=== PATIENT | male | born 1960 | race Caucasian/White ===

== ENCOUNTER → 2022-06-25 09:40 | Outpatient (BNVA) | payer OTHER, SELFPAY | PROVIDERS: Family Provider Nurse Practitioner Family; PCP Family Medicine; Visit Provider Nurse Practitioner Family | DX: Z13.1 Encounter for screening for diabetes mellitus (principal); Z12.5 Encounter for screening for malignant neoplasm of prostate; E78.5 Hyperlipidemia, unspecified | CPT/HCPCS: 80053; 80061; G0103 ==

== ENCOUNTER → 2023-03-17 08:34 | Outpatient (BNVA) | payer OTHER, SELFPAY | PROVIDERS: Family Provider Nurse Practitioner Family; PCP Nurse Practitioner Family; Visit Provider Nurse Practitioner Family | DX: R53.83 Other fatigue (principal); R03.0 Elevated blood-pressure reading, without diagnosis of hypertension; E78.5 Hyperlipidemia, unspecified | CPT/HCPCS: 80053; 80061; 85025 ==

== ENCOUNTER 2023-07-03 22:14 | Emergency (ER) | payer OTHER, SELFPAY ==
--- NOTE | 2023-07-03 22:20 | CTR_ITS ---
PROCEDURE INFORMATION: Exam: CT Head Without Contrast Exam date and time: 07/03/2023 11:16 PM Age: 63 years old Clinical indication: Syncope and collapse; Patient HX: Syncopal episode TECHNIQUE: Imaging protocol: Computed tomography of the head without contrast. Radiation optimization: All CT scans at this facility use at least one of these dose optimization techniques: automated exposure control; mA and/or kV adjustment per patient size (includes targeted exams where dose is matched to clinical indication); or iterative reconstruction. REPORTING DATA: Count of CT and Cardiac NM exams in prior 12 months: This patient has received 0 known CTs and 0 known cardiac nuclear medicine studies in the 12 months prior to the current study. COMPARISON: No relevant prior studies available. RADIATION DOSE METRICS: Total DLP (mGy-cm): 1054.49 FINDINGS: Brain: There is mild diffuse cerebral atrophy. Patchy areas hypoattenuation are seen in the deep white matter of the cerebral hemispheres bilaterally compatible deep white matter microvascular disease. Cerebral ventricles: No ventriculomegaly. Paranasal sinuses: Visualized sinuses are unremarkable. No fluid levels. Mastoid air cells: Visualized mastoid air cells are well aerated. Bones/joints: Unremarkable. No acute fracture. Soft tissues: Unremarkable. CT/CT head wo con* [id number] IMPRESSION: There are no acute intracranial findings.
--- NOTE | 2023-07-03 22:20 | XRR_ITS ---
PROCEDURE INFORMATION: Exam: XR Chest Exam date and time: 07/03/2023 11:13 PM Age: 63 years old Clinical indication: Other: Syncope; Patient HX: Syncopal episode TECHNIQUE: Imaging protocol: Radiologic exam of the chest. Views: 1 view. COMPARISON: No relevant prior studies available. FINDINGS: Tubes, catheters and devices: Transcutaneous pacemaker lead overlies the right mid hemithorax. Lungs: Unremarkable. No consolidation. Pleural spaces: Unremarkable. No pleural effusion. No pneumothorax. Heart/Mediastinum: Unremarkable. No cardiomegaly. Bones/joints: Unremarkable. XR/XR chest 1V portable [id number] IMPRESSION: There are no acute chest findings.
--- NOTE | 2023-07-03 22:26 | ECG_ITS ---
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 Measurements Intervals [place] Rate: 88 P: 62 [place]: 183 QRS: 63 QRSD: 87 T: 15 QT: 376 QTc: 456 Interpretive Statements SINUS RHYTHM WITH FREQUENT VENTRICULAR PREMATURE COMPLEXES NONSPECIFIC T-WAVE ABNORMALITY ABNORMAL RHYTHM ECG No previous ECG available for comparison Electronically Signed On 07-04-2023 13:43:28 POWERHOUSE ELECTRICIAN APPRENTICE by Roberto Wheeler M.D. [email or web address] regional medical centerIntellisensecincinnati children's hospital medical centerThe Echo System/store/OM/[id number]
[2023-07-03 22:32] VITALS: BP 124/70; PULSE 44; RESP 16; TEMP 36.8; O2SAT 96; BMI 23.0
--- NOTE | 2023-07-03 22:36 | ED_ITS ---
HPI - Syncope General: Chief Complaint: Syncope Stated Complaint: HYPOTENISON Time Seen by Provider: 07/03/23 22:15 Source: patient and EMS Mode of arrival: EMS Limitations: no limitations History of Present Illness: 63-year-old male states that he had been laying on his couch this evening got up got diaphoretic felt lightheaded and passed out. Denies any chest pain or headache before the event he states he has a mild headache after hemostasis prescribed his blood pressure was in the 60s and his blood pressure improved he states he feels much improved currently denies any fever or vomiting has had some slight diarrhea. No history of syncopal events in the past. Associated symptoms: Reports headache(s); Deny abdominal pain, chest pain, fever(s) or nausea Review of Systems Const: Denies: fever(s) or chills ENMT: Denies: throat pain or dental pain Card: Reports: syncope; Denies: chest pain Resp: Denies: dyspnea GI: Denies: abdominal pain, nausea, vomiting or diarrhea Musc: Denies: neck pain or back pain Skin/Breast: Denies: rash Neuro: Reports: headache(s) PFSH ED PFSH: Medical History Elevated liver enzymes Hyperlipidemia Family History Other CAD (coronary artery disease) Chronic kidney disease (CKD) Dementia Hyperlipidemia Hypertension Denies family history of Diabetes Lung disease Cancer Stroke Social History Smoking and tobacco/nicotine status: never used tobacco/nicotine Lives independently: Yes Household members: spouse Housing: House Physical Exam Const: COMMON NORMALS: no acute distress, patient oriented x3 and healthy appearing HENMT: COMMON NORMALS: normocephalic and atraumatic HEAD & SCALP: normocephalic and atraumatic Eye: COMMON NORMALS: Equal, round and reactive pupils present and EOMs intact bilaterally PUPIL: Yes Equal, round and reactive pupils present Neck/C-Spine: COMMON NORMALS: full ROM and supple Chest: COMMONS NORMALS: normal inspection of the chest and normal palpation of entire chest wall Resp: COMMON NORMALS: normal respiratory effort, No retractions, No use of accessory muscles and clear to auscultation bilaterally AUSCULTATION: clear to auscultation bilaterally Cardio: COMMON NORMALS: regular rate, regular rhythm and No murmurs present (Cardio) RATE: regular rate RHYTHM: regular rhythm GI: COMMON NORMALS: Normal to inspection, nondistended, normoactive bowel horacio nds present, Soft to palpation, non-tender and no masses PALPATION: Yes Soft to palpation Extremity: COMMON NORMALS: normal to inspection and full ROM Neuro: COMMON NORMALS: patient oriented x3, moves all extremities and no focal motor deficits Psych: COMMON NORMALS: mental status grossly normal, Normal thought process present and cooperative THOUGHT PROCESS: Normal thought process present Skin: COMMON NORMALS: no rashes or lesions noted and no wounds GENERAL SKIN EXAM: no rashes or lesions noted Course Vital Signs: Vital signs: Vital Signs Temperature 98.2 F 07/03/23 22:32 Pulse Rate 68 07/04/23 01:20 Respiratory Rate 16 07/03/23 22:32 Blood Pressure 116/74 07/04/23 01:20 Pulse Oximetry 96 07/03/23 22:32 MDM - Syncope Medical Decision Making Patient presents here with syncopal event labs. He has some dehydration he states he has not drank any water today just coffee. His head CT cardiac work- up here is normal he feels much improved after IV fluids his orthostatics are normal currently he is stable for discharge she is to follow-up with PCP and return if worsening he understands agrees to plan he is to drink plenty of fluids Medical Records I reviewed the patient's medical records. Lab Data I reviewed the patient's lab results. 07/03/23 22:40 07/03/23 22:40 Radiology Impressions Chest X-Ray 07/03/23 22:20 IMPRESSION: There are no acute chest findings. Head CT 07/03/23 22:20 IMPRESSION: There are no acute intracranial findings. Laboratory Results WBC 9.05 10^3/uL (3.29-11.43) 07/03/23 22:40 RBC 4.79 10^6/uL (3.85-5.65) 07/03/23 22:40 Hgb 14.60 g/dL (11.27-16.99) 07/03/23 22:40 Hct 44.7 % (37-53) 07/03/23 22:40 MCV 93.3 fl (82-101) 07/03/23 22:40 MCH 30.5 pg (27-33) 07/03/23 22:40 MCHC 32.7 g/dL (30-55) 07/03/23 22:40 RDW 13.1 % (12.1-15.1) 07/03/23 22:40 Plt Count 257 10^3/cmm (157-399) 07/03/23 22:40 MPV 12.2 fL (7.4-10.4) H 07/03/23 22:40 Neut % (Auto) 43.9 % 07/03/23 22:40 Lymph % (Auto) 44.2 % 07/03/23 22:40 Carlton % (Auto) 9.7 % 07/03/23 22:40 Eos % (Auto) 1.5 % 07/03/23 22:40 Baso % (Auto) 0.4 % 07/03/23 22:40 Neut # (Auto) 3.96 10^3/uL (1.8-7.7) 07/03/23 22:40 Lymph # (Auto) 4.0 10^3/uL (0.8-4.8) 07/03/23 22:40 Carl[place] # (Auto) 0.9 10^3/uL (0.2-0.9) 07/03/23 22:40 Eos # (Auto) 0.1 10^3/uL (0.0-0.8) 07/03/23 22:40 Baso # (Auto) 0.0 10^3/uL (0.0-0.1) 07/03/23 22:40 Nucleated RBC % (auto) 0 % 07/03/23 22:40 Nucleated RBCs # 0.0 /100WBC 07/03/23 22:40 PT 12.70 SECONDS (12.1-14.9) 07/03/23 23:03 INR 0.92 (0.8-1.2) 07/03/23 23:03 Sodium 141 mmol/L (136-145) 07/03/23 22:40 Potassium 4.0 mmol/L (3.5-5.1) 07/03/23 22:40 Chloride 104 mmol/L (98-107) 07/03/23 22:40 Carbon Dioxide 23 mmol/L (22-29) 07/03/23 22:40 Anion Gap 18.0 (5-19) 07/03/23 22:40 BUN 16 mg/dL (8-23) 07/03/23 22:40 Creatinine 1.5 mg/dL (0.7-1.2) H 07/03/23 22:40 GFR Calculation 47.4 mL/min (90-130) L 07/03/23 22:40 Glucose 54 mg/dL (65-115) L 07/03/23 22:40 Calculated Osmolality 291 mOsm/kg (285-295) 07/03/23 22:40 Calcium 8.9 mg/dL (8.5-10.5) 07/03/23 22:40 Total Bilirubin 0.5 mg/dL (0.15-1.2) 07/03/23 22:40 AST 33 U/L (0-40) 07/03/23 22:40 ALT 17 U/L (0-41) 07/03/23 22:40 Alkaline Phosphatase 57 U/L (40-130) 07/03/23 22:40 Troponin T Baseline 17 ng/L (0-15) H 07/03/23 22:40 Troponin T 120 Minute 10.71 ng/L (0-15) 07/04/23 00:40 Delta Troponin T -6.29 ABS# (0-10) L 07/04/23 00:40 Total Protein 6.2 g/dL (6.6-8.7) L 07/03/23 22:40 Albumin 4.3 g/dL (3.5-5.2) 07/03/23 22:40 Globulin 1.9 g/dL (1.3-4.6) 07/03/23 22:40 All radiology interpretation(s) finalized by discharge EKG Data EKG 1: I personally reviewed and interpreted this EKG as follows: EKG interpretation date: 07/03/23 EKG interpretation time: 23:26 Interpretation: nsr hr [address] or t wave abnormalities qrs 87 qtc 422 Discharge Plan Discharge Patient Disposition: Home Clinical Impression: Syncope, Dehydration Condition: Stable Prescriptions: No Action cephalexin 500 mg capsule 500 mg PO Q8H 7 Days Qty: 21 0RF lisinopril 5 mg tablet See Rx Instructions .ROUTE .COMPLEX Qty: 90 0RF Dose Instruction: TAKE 1 TABLET BY MOUTH DAILY Rx Instructions: TAKE 1 TABLET BY MOUTH DAILY Discharge Orders: Discharge ED (Routine); Ordered 07/04/23 Ordered By: Rk Nick Referrals: Dixie Elizabeth FNP [Primary Care Provider] - 1-3 days Discharge Diet: Advance as tolerated Discharge Activity: Resume usual activity Patient Instructions: Syncope (ED) Coding Level of Care Code ED Rn Clinical Resource for aSchin Mckay
[2023-07-03 22:52] LABS: Basophils % 0.4 %; Eosinophils # 0.1 10^3/uL (0.0-0.8); Eosinophils % 1.5 %; Hematocrit 44.7 % (37-53); Lymphocytes % 44.2 %; Mean Corpuscular HGB Conc 32.7 g/dL (30-55); Mean Corpuscular Hemoglobin 30.5 pg (27-33); Mean Corpuscular Volume 93.3 fl (82-101); Mean Platelet Volume 12.2 fL (7.4-10.4); Monocytes # 0.9 10^3/uL (0.2-0.9); Monocytes % 9.7 %; Neutrophils # 3.96 10^3/uL (1.8-7.7); Neutrophils % 43.9 %; Nucleated Red Blood Cells % 0 %; Platelet Count 257 10^3/cmm (157-399); Red Blood Count 4.79 10^6/uL (3.85-5.65); Red Cell Distribution Width 13.1 % (12.1-15.1); White Blood Count 9.05 10^3/uL (3.29-11.43)
[2023-07-03] MEDS: sodium chloride 0.9% 1,000 ML 999 ML IV ×2 (23:15→23:47)
[2023-07-03 23:20] LABS: INR 0.92 (0.8-1.2)
[2023-07-03 23:26] LABS: Troponin(5th) Baseline 17 ng/L (0-15)
[2023-07-03 23:27] LABS: Alanine Aminotransferase 17 U/L (0-41); Albumin Level 4.3 g/dL (3.5-5.2); Alkaline Phosphatase 57 U/L (40-130); Aspartate Amino Transferase 33 U/L (0-40); Blood Urea Nitrogen 16 mg/dL (8-23); Calcium 8.9 mg/dL (8.5-10.5); Carbon Dioxide 23 mmol/L (22-29); Chloride 104 mmol/L (98-107); Globulin 1.9 g/dL (1.3-4.6); Glomerular Filtration Rate 47.4 mL/min (90-130); Glucose 54 mg/dL (65-115); Osmolality Calculated 291 mOsm/kg (285-295); Sodium 141 mmol/L (136-145); Total Bilirubin 0.5 mg/dL (0.15-1.2); Total Protein 6.2 g/dL (6.6-8.7)
[2023-07-04 01:10] LABS: Troponin 5 2HR 10.71 ng/L (0-15); Troponin 5 2HR Delta -6.29 ABS# (0-10)
[2023-07-04 01:20] VITALS: BP 116/74; BP 122/80; BP 138/84; PULSE 68; PULSE 75; PULSE 80
== END 2023-07-04 01:33 | disposition home or self-care (01) ==
PROVIDERS: Emergency Provider Emergency Medicine; PCP Nurse Practitioner Family
DX: R55 Syncope and collapse (principal); E86.0 Dehydration; E78.5 Hyperlipidemia, unspecified
CPT/HCPCS: 36415; 70450; 71045; 80053; 84484; 85025; 85610; 93005; 93010; 96360; 99285; J7030

== ENCOUNTER 2023-07-05 12:38 | Observation (INO) | payer OTHER, SELFPAY ==
[2023-07-05] VITALS (7 sets, daily range): BP systolic 116–162; BP diastolic 74–89; PULSE 35–67; RESP 16–19; TEMP 36.4–36.7; O2SAT 96–98; BMI 23.0
--- NOTE | 2023-07-05 12:57 | XRR_ITS ---
PROCEDURE INFORMATION: Exam: XR Chest Exam date and time: 07/05/2023 1:23 PM Age: 63 years old Clinical indication: Other: Palpitations TECHNIQUE: Imaging protocol: Radiologic exam of the chest. Views: 1 view. COMPARISON: CR (CHEST, ) 07/03/2023 11:13 PM FINDINGS: Lungs: Unremarkable. No consolidation. Pleural spaces: Unremarkable. No pleural effusion. No pneumothorax. Heart/Mediastinum: Unremarkable. No cardiomegaly. Bones/joints: Unremarkable. XR/XR chest 1V portable [id number] IMPRESSION: No acute findings.
--- NOTE | 2023-07-05 12:58 | ECG_ITS ---
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 Measurements Intervals [place] Rate: 77 P: 49 [place]: 171 QRS: 35 QRSD: 90 T: 30 QT: 373 QTc: 424 Interpretive Statements SINUS RHYTHM WITH FREQUENT VENTRICULAR PREMATURE COMPLEXES IN A BIGEMINAL PATTERN POSSIBLE LEFT ATRIAL ENLARGEMENT [-0.1mV P-WAVE IN V1/V2] ABNORMAL RHYTHM ECG Compared to ECG 07/03/2023 22:26:31 T-wave abnormality no longer present Electronically Signed On 07-06-2023 17:02:26 UNDERGROUND PRODUCTION FOREPERSON by Roberto Wheeler M.D. [id number]
--- NOTE | 2023-07-05 12:58 | W.ED.ARRPALP ---
HPI - Arrhythmia/Palpitations General: Chief Complaint: ER Hold Stated Complaint: sent over by for heart issues Time Seen by Provider: 07/05/23 12:56 History of Present Illness: 63-year-old male presents emergency department from his primary care provider's office. Patient states he was seen here 2 days ago and was treated for dehydration at that time. He states that he had been feeling weak and just off for the previous 4 days prior to coming to the emergency department on 07/03/2023. He states that they provided him IV fluid and advised him to follow-up with his primary care provider. Patient was seen by his primary care provider today received a twelve-lead EKG which demonstrated a ventricular heart rate of 71 with frequent unifocal PVCs. Patient's cardiac rhythm is bigeminy RI interval is 169 the QRS duration is 86 the QT is 380 QTc is 403. At present there is no ST elevation or depression to demonstrate acute ischemia on his primary care providers twelve-lead EKG that he presented to me here in the emergency department. He states he does feel slightly off and does feel like he is having increased weakness and fatigue. He states he is not actively having chest pain and does not feel short of breath but when he stands he feels slightly dizzy and lightheaded. 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 He states at that time he received an ultrasound and a cardiac catheterization through his wrist and advised him that there was no abnormalities. He thinks that his cardiac evaluation was approximately 5 or 6 years ago. Associated symptoms: Reports pre-syncope and syncope Review of Systems General: Reports: 10 or more systems reviewed and unremarkable except in HPI and below Card: Reports: lightheadedness, syncope and pre-syncope Neuro: Reports: dizziness PFSH ED PFSH: Medical History Elevated liver enzymes Hyperlipidemia Family History Other CAD (coronary artery disease) Chronic kidney disease (CKD) Dementia Hyperlipidemia Hypertension Denies family history of Diabetes Lung disease Cancer Stroke Social History Smoking and tobacco/nicotine status: never used tobacco/nicotine Lives independently: Yes Household members: spouse Housing: House Physical Exam Narrative: EXAM NARRATIVE: Constitutional: the patient appears well nourished and with normal development. Vital signs reviewed as documented. HENMT: Normocephalic, atraumatic. Extermal ears with normal appearance without drainage. Nose without drainage, normal appearance. Mucus membranes moist. Neck is supple, No jugular venous distension, trachea is midline, no appreciable carotid bruits. No lymphadenopathy. No meningeal signs. Flexion, extension and lateral rotation is without pain. Eyes: Pupils are equal, round, reactive to light and accommodation. No scleral icterus. Extra-ocular movement are intact. Thorax is symmetrical and with equal rise and fall with respirations. Resp: Lungs are clear to auscultation. No wheezes, rales, crackles or ronchi at present. Cardio: Regular rate and rhythm. Positive S1, S2. No appreciable murmurs, rubs or gallops. GI: Abdominal exam reveals normal bowel sounds to all quadrants. No organomegaly. No obvious palpable masses noted. No hepatomegally appreciated. Soft, nontender to palpation. Extremity: Extremities are non-edematous and both femoral and pedal pulses are 2+ and equal bilaterally. Moves all extremities well, sensation in all extremities. Neuro: Alert and oriented x4, person, place, time and situation. Cranial nerves II through XII are grossly intact, there is no focal neurological deficits that I can appreciate at present. Motor strength in the upper and lower extremities are equal and bilateral 5/5. Psych: Cooperative, calm, normal thought process, appropriate judgment. Skin: No lesions, rashes. No gross abnormalities noted. Back: Symmetrical, no obvious deformity, No CVA tenderness Course Vital Signs: Vital signs: Vital Signs Temperature 98.0 F 07/05/23 12:48 Pulse Rate 40 L 07/05/23 14:00 Respiratory Rate 18 07/05/23 14:00 Blood Pressure 143/83 07/05/23 14:00 Pulse Oximetry 98 07/05/23 14:00 Oxygen Delivery Me thod Room Air 07/05/23 13:03 MDM - Arrhythmia/Palpitations Medical Decision Making Physical exam completed and documented I did review the patient's recent ER visit note and we will provide him laboratory evaluation to include a CBC, CMP cardiac enzymes twelve-lead EKG and a chest x-ray. I am concerned given his cardiac rhythm of bigeminy and his presenting symptoms. I will ultimately contact the hospitalist and cardiology and request evaluation and possible admission for observation of the patient. Medical Records I reviewed the patient's medical records. Lab Data I reviewed the patient's lab results. 07/05/23 13:14 07/05/23 13:14 Radiology Impressions Chest X-Ray 07/05/23 12:57 IMPRESSION: No acute findings. Laboratory Results WBC 6.52 10^3/uL (3.29-11.43) 07/05/23 13:14 RBC 4.80 10^6/uL (3.85-5.65) 07/05/23 13:14 Hgb 14.80 g/dL (11.27-16.99) 07/05/23 13:14 Hct 45.0 % (37-53) 07/05/23 13:14 MCV 93.8 fl (82-101) 07/05/23 13:14 MCH 30.8 pg (27-33) 07/05/23 13:14 MCHC 32.9 g/dL (30-55) 07/05/23 13:14 RDW 13.4 % (12.1-15.1) 07/05/23 13:14 Plt Count 222 10^3/cmm (157-399) 07/05/23 13:14 MPV 11.8 fL (7.4-10.4) H 07/05/23 13:14 Neut % (Auto) 55.5 % 07/05/23 13:14 Lymph % (Auto) 32.1 % 07/05/23 13:14 [place] % (Auto) 9.8 % 07/05/23 13:14 Eos % (Auto) 1.8 % 07/05/23 13:14 Baso % (Auto) 0.6 % 07/05/23 13:14 Neut # (Auto) 3.62 10^3/uL (1.8-7.7) 07/05/23 13:14 Lymph # (Auto) 2.1 10^3/uL (0.8-4.8) 07/05/23 13:14 [place] # (Auto) 0.6 10^3/uL (0.2-0.9) 07/05/23 13:14 Eos # (Auto) 0.1 10^3/uL (0.0-0.8) 07/05/23 13:14 Baso # (Auto) 0.0 10^3/uL (0.0-0.1) 07/05/23 13:14 Nucleated RBC % (auto) 0 % 07/05/23 13:14 Nucleated RBCs # 0.0 /100WBC 07/05/23 13:14 PT 12.50 SECONDS (12.1-14.9) 07/05/23 13:14 INR 0.91 (0.8-1.2) 07/05/23 13:14 APTT 23.7 SECONDS (23.9-36.7) L 07/05/23 13:14 Sodium 139 mmol/L (136-145) 07/05/23 13:14 Potassium 4.1 mmol/L (3.5-5.1) 07/05/23 13:14 Chloride 104 mmol/L (98-107) 07/05/23 13:14 Carbon Dioxide 26 mmol/L (22-29) 07/05/23 13:14 Anion Gap 13.1 (5-19) 07/05/23 13:14 BUN 7 mg/dL (8-23) L 07/05/23 13:14 Creatinine 0.8 mg/dL (0.7-1.2) 07/05/23 13:14 GFR Calculation 98.0 mL/min (90-130) 07/05/23 13:14 Glucose 91 mg/dL (65-115) 07/05/23 13:14 Calculated Osmolality 286 mOsm/kg (285-295) 07/05/23 13:14 Calcium 9.0 mg/dL (8.5-10.5) 07/05/23 13:14 Total Bilirubin 0.6 mg/dL (0.15-1.2) 07/05/23 13:14 AST 29 U/L (0-40) 07/05/23 13:14 ALT 16 U/L (0-41) 07/05/23 13:14 Alkaline Phosphatase 57 U/L (40-130) 07/05/23 13:14 Troponin T Baseline 16 ng/L (0-15) H 07/05/23 13:14 NT-Pro-B Natriuret Pep 304 pg/mL (0-125) H 07/05/23 13:14 Total Protein 6.2 g/dL (6.6-8.7) L 07/05/23 13:14 Albumin 4.3 g/dL (3.5-5.2) 07/05/23 13:14 Globulin 1.9 g/dL (1.3-4.6) 07/05/23 13:14 All radiology interpretation(s) finalized by discharge EKG Data Twelve-lead EKG obtained at 1309 and reviewed at 1309 demonstrates sinus rhythm with unifocal PVCs that are consistent with a cardiac rhythm of bigeminy. Ventricular rate of 77 bpm RI interval 171 QRS duration is 90 QT 373 QTc [address] elevation or depression to demonstrate acute ischemia or infarction at present. I suspect the ventricular rate that is recording that is 77 is accounting for the PVCs that are occurring and his actual heart rate is approximately 50% of its presented and that is why he is symptomatic.: Other EKG comments: Chest X-Ray 07/05/23 12:57 IMPRESSION: No acute findings. Repeat twelve-lead EKG at 1506 and reviewed at 1508 demonstrates sinus rhythm with unifocal PVCs in a bigeminal pattern ventricular rate 74 bpm, RI interval 171 QRS duration 86 QT 371 QTc [address] elevation or depression to demonstrate acute ischemia at present.: Other EKG comments: Chest X-Ray 07/05/23 12:57 IMPRESSION: No acute findings. 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
--- NOTE | 2023-07-05 13:26 | PC.PHAR ---
pts verified pts medications
[2023-07-05 13:48] LABS: Basophils % 0.6 %; Eosinophils # 0.1 10^3/uL (0.0-0.8); Eosinophils % 1.8 %; Lymphocytes # 2.1 10^3/uL (0.8-4.8); Lymphocytes % 32.1 %; Mean Corpuscular HGB Conc 32.9 g/dL (30-55); Mean Corpuscular Hemoglobin 30.8 pg (27-33); Mean Corpuscular Volume 93.8 fl (82-101); Mean Platelet Volume 11.8 fL (7.4-10.4); Monocytes # 0.6 10^3/uL (0.2-0.9); Monocytes % 9.8 %; Neutrophils # 3.62 10^3/uL (1.8-7.7); Neutrophils % 55.5 %; Nucleated Red Blood Cells % 0 %; Platelet Count 222 10^3/cmm (157-399); Red Cell Distribution Width 13.4 % (12.1-15.1); White Blood Count 6.52 10^3/uL (3.29-11.43)
[2023-07-05 13:49] LABS: Troponin(5th) Baseline 16 ng/L (0-15)
[2023-07-05 13:57] LABS: NT Pro B Type Natriuretic Pept 304 pg/mL (0-125)
[2023-07-05 14:08] LABS: Alanine Aminotransferase 16 U/L (0-41); Albumin Level 4.3 g/dL (3.5-5.2); Alkaline Phosphatase 57 U/L (40-130); Anion Gap 13.1 (5-19); Aspartate Amino Transferase 29 U/L (0-40); Blood Urea Nitrogen 7 mg/dL (8-23); Carbon Dioxide 26 mmol/L (22-29); Chloride 104 mmol/L (98-107); Globulin 1.9 g/dL (1.3-4.6); Glucose 91 mg/dL (65-115); Osmolality Calculated 286 mOsm/kg (285-295); Potassium 4.1 mmol/L (3.5-5.1); Sodium 139 mmol/L (136-145); Total Bilirubin 0.6 mg/dL (0.15-1.2); Total Protein 6.2 g/dL (6.6-8.7)
[2023-07-05] MEDS: lactated ringers 1,000 ML 125 ML IV ×2 (14:32→21:21)
[2023-07-05 14:38] LABS: INR 0.91 (0.8-1.2)
[2023-07-05 14:39] LABS: Partial Thromboplastin Time 23.7 SECONDS (23.9-36.7)
--- NOTE | 2023-07-05 15:06 | ECG_ITS ---
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 Measurements Intervals [place] Rate: 74 P: 43 [place]: 171 QRS: 29 QRSD: 86 T: 31 QT: 371 QTc: 414 Interpretive Statements SINUS RHYTHM WITH FREQUENT VENTRICULAR PREMATURE COMPLEXES IN A BIGEMINAL PATTERN POSSIBLE LEFT ATRIAL ENLARGEMENT [-0.1mV P-WAVE IN V1/V2] ABNORMAL RHYTHM ECG Compared to ECG 07/05/2023 13:09:34 No significant changes Electronically Signed On 07-06-2023 17:22:12 STRUCTURER by Roberto Wheeler M.D. [email or web address] surgical [email or web address]/store/[id number]
--- NOTE | 2023-07-05 15:18 | USCV_ITS ---
Red Macdonald Age: 63 Gender: M : 1960 Exam Date: 07/05/2023 18:19 Ordering Phys: Roberto Wheeler MD ([email or web address]) Technologist: YANELIS Exam Location: [facility] [place] Indication: intermittent bradycardia. No history of cardiac intervention per patient. BP: 143 / 83 HR: 78 Rhythm: Sinus Technical Quality: Adequate MEASUREMENTS (Male / Female) Normal Values 2D ECHO LV Diastolic Diameter PLAX 4.4 cm 4.2 - 5.9 / 3.9 - 5.3 cm LV Systolic Diameter PLAX 3.2 cm IVS Diastolic Thickness 1.5 cm 0.6 - 1.0 / 0.6 - 0.9 cm IVS Systolic Thickness 1.7 cm LVPW Diastolic Thickness 1.1 cm 0.6 - 1.0 / 0.6 - 0.9 cm LVPW Systolic Thickness 1.2 cm LVOT Diameter 2.0 cm LV Ejection Fraction 2D Teich 53.8 % LV Ejection Fraction MOD 2C 57.2 % LV Ejection Fraction 2C AL 56.6 % LA Diameter 4.3 cm LA Width 4.0 cm LA Height 6.0 cm RA Width 3.2 cm RA Height 4.5 cm Aorta at Sinotubular Diameter 3.0 cm IVC Diameter 1.8 cm M-MODE Aortic Annulus Diameter 3.3 cm LA Ao Ratio MM 1.3 MV E Point Septal Separation 0.5 cm DOPPLER AV Peak Velocity 121.0 cm/s LVOT Peak Velocity 117.0 cm/s AV Area Cont Eq vti 2.4 cm squared AV Area Cont Eq pk 2.9 cm squared MV Area PHT 4.1 cm squared Mitral E to A Ratio 1.3 MV E' Velocity 54.0 cm/s Mitral E to MV E' Ratio 11.2 Mitral E to LV E' Lateral Ratio 12.0 Mitral E to LV E' Septal Ratio 10.6 TR Peak Velocity 176.7 cm/s TR Peak Gradient 12.5 mmHg TV Peak E Velocity 32.0 cm/s Right Atrial Pressure 5.0 mmHg Pulmonary Artery Systolic Pressu 17.5 mmHg PV Peak Velocity 75.0 cm/s RV Acceleration Time 0.1 s RV Ejection Time 0.4 s RV AcT/ET 0.3 FINDINGS Left Ventricle Mild left ventricular hypertrophy. Normal left ventricular size, systolic function and wall thickness, with no regional wall motion abnormalities. Left ventricular ejection fraction is estimated at 60 %. Right Ventricle Normal right ventricular size and systolic function. Right Atrium Normal right atrial size. Left Atrium Normal left atrial size. Mitral Valve Thickened mitral valve. No mitral valve stenosis. Trace mitral valve regurgitation. Aortic Valve Thickened aortic valve. No aortic valve stenosis. No aortic valve regurgitation. Tricuspid Valve Structurally normal tricuspid valve. Trace tricuspid valve regurgitation. Pulmonic Valve Pulmonic valve not well visualized. Mild pulmonary valve regurgitation. Pericardium No pericardial effusion. Aorta Normal size aortic root and proximal ascending aorta. IVC Normal IVC dimension with >50% respiratory change of the inferior vena cava. CONCLUSIONS Frequent PVCs during the echo study. Mild concentric LVH. Normal LV systolic function. LVEF estimated at 60%. Normal chamber sizes. No significant valvular abnormality noted. Normal right heart and pulmonary pressures. Roberto Wheeler MD (Electronically Signed) Final Date: 05 July 2023 20:09 S
--- NOTE | 2023-07-05 15:20 | ECG_ITS ---
[facility] Test Date: 2023-07-06 Pat Name: Red Macdonald Department: Room: 112 Gender: Male Urology Physician: Mireille Danilo : 1960 Requested By: Roberto Wheeler Order Number: [id number] MD: Sweetie Conde M.D. Interpretive Statements NAME OF STUDY: EXERCISE SESTAMIBI STRESS TEST INDICATION: Syncope, PVCs Baseline blood pressure of 123/93 mm Hg, heart rate of 70 beats per minute and oxygen saturation of 94%. EKG showed sinus rhythm, normal axis with normal ST-Ts. ??? The patient exercised for 5 min 39 seconds on a [standard Tian protocol]. Patient attained a maximum heart rate of 137 beats per minute( 88 % of the maximum predicted heart rate) with a blood pressure at the peak exercise of 178/86 mm Hg. The EKG at the peak exercise revealed sinus tachycardia with no significant ST-T wave changes. Patient did [not have any chest pain or any significant arrhythmis with the exercise]??? During the recovery phase, there were no new changes. Frequent isolated PVC's noted in recovery. ??? Blood pressure at the end of the recovery phase was 126/87 mm Hg with a heart rate of 79 beats per minute. ??? CONCLUSION: 1. Normal EKG response to treadmill exercise. 2. No exercise-induced chest pain or cardiac arrhythmia. 3. Good exercise tolerance, attained a maximum of 7 METs. 4. Baseline normal blood pressure with normal response to exercise. 5. Perfusion scan will be documented separately. Electronically Signed On 07-09-2023 7:57:03 ELECTRIC TOOL REPAIRER by Sweetie Conde M.D. [id number]
--- NOTE | 2023-07-05 15:26 | PM.CONSULT ---
Providers/Reason For Consult Consulting Physician/Specialty*: Cardiology Reason for Consult*: Syncope, frequent PVCs on the EKG Requesting Physician: Dr. Eugenio Nagel Attending Physician: Mendel Molina MD Primary Care Provider: MARCELINO Rodriguez History of Present Illness History of Present Illness Red Macdonald is a 63 year old male, with a known history of hypertension presented to ER 2 days ago with an episode of syncope. At that time patient was felt to be markedly dehydrated, he was treated with the IV fluids and ruled out for acute coronary syndrome. However patient continues to have intermittent spells of some dizziness. He did not have any further episode of syncope. He he was seen by nurse practitioner at [facility] and sent him again to the ER because of ongoing intermittent symptoms of dizziness. Patient is fairly active in his daily routine life. He feels for last couple of months that he feels more tired and fatigued. He denies any resting or exertional chest pain or shortness of air. Still able to perform his daily routine activity including his work. No further episode of syncope. EKG again showed sinus rhythm with frequent PVCs including ventricular bigeminal rhythm. At home he takes only a medication for blood pressure and apparently his blood pressure has been well-controlled. He does not smoke and does not known to have a diabetes melitis. Review of Systems Narrative: Detailed 10 point systemic review is unremarkable except for as mentioned above in the history of present illness. Medications/Allergies Home Medications Medication Instructions Recorded Confirmed Last Taken Type Active B Complex 1 tab PO QAM 07/05/23 07/05/23 Unknown History Black Seed Oil 1 cap PO QAM 07/05/23 07/05/23 Unknown History aspirin 81 mg tablet,delayed 81 mg PO QAM 07/05/23 07/05/23 07/03/23 History release cetirizine 10 mg tablet (Zyrtec) 10 mg PO QAM 07/05/23 07/05/23 Unknown History cholecalciferol (vitamin D3) 125 250 mcg PO QAM 07/05/23 07/05/23 Unknown History mcg (5,000 unit) tablet (Vitamin D3) docosahexaenoic acid (dha)-epa 1 cap PO QAM 07/05/23 07/05/23 Unknown History capsule lisinopril 5 mg tablet 5 mg PO BEDTIME 07/05/23 07/05/23 07/02/23 History multivitamin 1 tab PO QAM 07/05/23 07/05/23 Unknown History Allergies Allergy/AdvReac Type Severity Reaction Status Date / Time No Known Allergies Allergy Verified 07/05/23 13:24 Current Medications Generic Name Dose Route Start Last Admin Trade Name Freq PRN Reason Stop Dose Admin Lactated Ringer's 1,000 mls @ 125 mls/hr 07/05/23 14:15 07/05/23 14:32 Lactated Ringers IV 125 mls/hr .Q8H EDWARD Administration PFSH Acute PFSH: Medical History Elevated liver enzymes Hyperlipidemia Family History Other CAD (coronary artery disease) Chronic kidney disease (CKD) Dementia Hyperlipidemia Hypertension Denies family history of Diabetes Lung disease Cancer Stroke Social History Smoking and tobacco/nicotine status: never used tobacco/nicotine Lives independently: Yes Household members: spouse Housing: House Vitals/I&O/Wt Last Vital Signs Temp 98.0 F 07/05/23 12:48 Pulse 40 L 07/05/23 14:00 Resp 18 07/05/23 14:00 BP 143/83 07/05/23 14:00 Pulse Ox 98 07/05/23 14:00 O2 Del Method Room Air 07/05/23 13:03 Weight last 48 hrs Weight 170 lb Physical Exam Narrative: Patient laying comfortably on the examination couch in the ER. Not in any respiratory distress. Vitals reveal blood pressure 146/82. Pulse sinus rhythm with frequent PVCs heart rate 70/min. HEENT exam: Unremarkable. Eyes: Normal There is no JVD Lungs clear to auscultation bilaterally with good air entry. Cardiovascular exam: Normal first and second heart sounds, no added sound. Frequent PVCs Abdomen: Soft nontender. Bowel sounds audible Extremities: Normal, no pedal edema Skin: Warm and dry. Neuro: Intact. Data 07/05/23 13:14 07/05/23 13:14 A&P Assessment and plan (1) Bigeminal rhythm: (2) Syncope: Plan 63-year-old male patient with a history of hypertension, had an episode of syncope a 2 days ago, ruled out for acute ACS and now presented with ongoing 1. intermittent dizziness 2. Frequent PVCs with a ventricular bigeminal rhythm on EKG 3. Clinically no angina or heart failure. Recommendation: 1. To rule out ACS. 2. Echo. 3. Exercise nuclear stress test 4. To continue his current blood pressure medication, lisinopril. Coding Level of Care Code Acute Code for [facility] Diagnoses Bigeminal rhythm I49.8 Syncope R55 Time Spent (min) 30
[2023-07-05 15:47] LABS: Troponin 5 2HR 22.02 ng/L (0-15)
[2023-07-05 15:51] LABS: Troponin 5 2HR Delta 6.02 ABS# (0-10)
--- NOTE | 2023-07-05 17:11 | P.HP_ITS ---
Providers/Chief Complaint Admitting Physician: Mendel Molina MD Primary Care Provider: MARCELINO Rodriguez Chief Complaint: sent over by for heart issues History of Present Illness Red Macdonald is a 63 year old male with past medical history of hypertension who presented to the ER 2 days ago with episode of syncope with shortness associated with diaphoresis, lightheadedness while he was getting up from the couch. On that presentation patient was found to have mild bigeminy on the EKG but had a creatinine of 1.5 hence he was thought to have syncope secondary dehy dration. Fluid resuscitation was done and he was discharged with advised to follow-up with his PCP. Today when he was seen by his PCP in the office EKG showed significant bigeminy and trigeminy. Since discharge from the ER patient has not had any further syncope but continues to have significant amount of intermittent dizziness hence he was sent back to the ER. In the ER he was found to have frequent bigeminy's and trigeminy with heart rate trending in low 40s with increasing frequency of trigeminy on minimal ambulation along with symptoms. Patient denies of having any similar complaints in the past. Review of Systems General: Reports: 10 or more systems reviewed and unremarkable except in HPI and below Const: Denies: fever(s), chills, body aches, change in appetite, change in weight, malaise, night sweats, diaphoresis, change in sleep pattern, daytime sleepiness or snoring Eyes: Denies: change in vision, blurry vision, photophobia, eye discomfort or eye discharge ENMT: Denies: throat pain, enlarged tonsils, hoarseness, mouth pain, oral sores, dry mouth, tinnitus, nasal congestion or post nasal drip Card: Denies: chest pain, palpitations, irregular heart rhythm, edema, swelling of feet/ankles, lightheadedness, syncope, pre-syncope, dyspnea on exertion, orthopnea, leg pain with exertion or acrocyanosis Resp: Denies: dyspnea, productive cough, non-productive cough, wheezing, stridor, pain on inspiration, change in phlegm color, hemoptysis or chest congestion GI: Denies: abdominal pain, nausea, vomiting, hematemesis, coffee ground emesis, dysphagia, heartburn, diarrhea, constipation, bloating, GI cramping, change in bowel habits, pain on defecation, hematochezia or melena : Denies: flank pain, difficulty urinating, dysuria, urinary frequency, urinary urgency, urinary hesitancy, urinary dribbling, difficulty starting urination, change in urine stream, nocturia or hematuria Musc: Denies: neck pain, back pain, extremity pain, joint pain, joint sw elling, joint redness, joint stiffness or limited range of motion Neuro: Denies: headache(s), numbness in extremities, weakness in extremities, sensory changes, lack of coordination, difficulty walking, frequent falls, dizziness, vertigo, confusion, Slurred speech present, difficulty communicating thoughts or seizure-like activity Psych: Denies: anxiety, depression, mood swings, panic attacks, hopelessness or irritability Endo: Denies: polyuria, polydipsia, tired all the time, cold intolerance, excessive sweating, flushing or heat intolerance Osman/Lymph: Denies: easy bruising or easy bleeding All/Imm: Denies: tongue swelling, facial swelling or acute wheezing Medications/Allergies Home Medications Medication Instructions Recorded Confirmed Last Taken Type Active B Complex 1 tab PO QAM 07/05/23 07/05/23 Unknown History Black Seed Oil 1 cap PO QAM 07/05/23 07/05/23 Unknown History aspirin 81 mg tablet,delayed 81 mg PO QAM 07/05/23 07/05/23 07/03/23 History release cetirizine 10 mg tablet (Zyrtec) 10 mg PO QAM 07/05/23 07/05/23 Unknown History cholecalciferol (vitamin D3) 125 250 mcg PO QAM 07/05/23 07/05/23 Unknown History mcg (5,000 unit) tablet (Vitamin D3) docosahexaenoic acid (dha)-epa 1 cap PO QAM 07/05/23 07/05/23 Unknown History capsule lisinopril 5 mg tablet 5 mg PO BEDTIME 07/05/23 07/05/23 07/02/23 History multivitamin 1 tab PO QAM 07/05/23 07/05/23 Unknown History Allergies Allergy/AdvReac Type Severity Reaction Status Date / Time No Known Allergies Allergy Verified 07/05/23 13:24 PFSH Acute PFSH: Medical History Elevated liver enzymes Hyperlipidemia Family History Other CAD (coronary artery disease) Chronic kidney disease (CKD) Dementia Hyperlipidemia Hypertension Denies family history of Diabetes Lung disease Cancer Stroke Social History Smoking and tobacco/nicotine status: never used tobacco/nicotine Lives independently: Yes Household members: spouse Housing: House Vitals/I&O/Wt Last Vital Signs Temp 98.0 F 07/05/23 12:48 Pulse 40 L 07/05/23 14:00 Resp 18 07/05/23 14:00 BP 143/83 07/05/23 14:00 Pulse Ox 98 07/05/23 14:00 O2 Del Method Room Air 07/05/23 13:03 Weight last 48 hrs Weight 77.111 kg Physical Exam Narrative: General: No acute distress, AO x3 HEENT: PERRLA, pupils bilaterally equal and reactive Chest: Normal vesicular breath sounds, no added sounds, equal good air entry bilaterally CVS: S1-S2 regular, no murmurs, bradycardia, no gallops, no rubs Abdomen: Soft, nontender, no organomegaly, bowel sounds present Neuro: No focal deficits, no facial deformity, AO x3, power 5/5 in all limbs Data 07/05/23 13:14 07/05/23 13:14 A&P Assessment and plan (1) Syncope: Most likely in setting of cardiac arrhythmia with bigeminy and trigeminy. Fall precaution. Orthostatic negative. Appreciate BMP for no more VALE. (2) Bigeminal rhythm: Heart rate is running in low 40s. Cardiology consulted from the ER. Check echocardiogram, A1c, lipid panel. Cannot rule out ACS. Will follow recommendations from cardiology for possible cardiac stress test. Telemetry. Atropine and emergency cart at bedside. For now start patient on baby aspirin 81 mg daily. Check urinalysis, urine drug screen. Check TSH, vitamin B12, folate levels. (3) Hyperlipidemia: Since patient was recently diagnosed. Not on any statins. Started on atorvastatin 40 mg daily. (4) Elevated BP without diagnosis of hypertension: Goal pressure less than 140/90 mmHg. Continue with home dose of lisinopril 5 mg daily. Plan Full code Cardiac diet, n.p.o. after midnight. Heparin 5000 every 12 hourly for DVT prophylaxis Famotidine for PUD prophylaxis. Attestations Medical Necessity Statement*: Admission for more than 2 midnights for management of syncope in setting of symptomatic bigeminy and trigeminy while ACS is ruled out. Diagnoses Syncope R55 Bigeminal rhythm I49.8 Hyperlipidemia E78.5 Elevated BP without diagnosis of hypertension R03.0
[2023-07-05 17:52] LABS: Iron 151 ug/dL (59-158); Percent Saturation 56.5 % (20-50); Thyroid Stimulating Hormone 4.23 uIU/mL (0.27-4.20); Total Iron Binding Capacity 267 mcg/dl; Unsaturated Iron Binding 116 ug/dL (112-347); Vitamin B12 622 pg/mL (232-1245)
[2023-07-05] MEDS: famotidine 20 mg Tablet PO (18:02)
[2023-07-05] MEDS: heparin 5,000 unit/mL INJ 1 mL 5000 UNIT SUBCUT (18:02)
--- NOTE | 2023-07-05 18:58 | ECG_ITS ---
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 Measurements Intervals [place] Rate: 78 P: 52 NM: 172 QRS: 40 QRSD: 89 T: 28 QT: 373 QTc: 426 Interpretive Statements SINUS RHYTHM WITH FREQUENT VENTRICULAR PREMATURE COMPLEXES IN A BIGEMINAL PATTERN LEFT ATRIAL ENLARGEMENT [-0.15mV P-WAVE IN V1/V2] Compared to ECG 07/05/2023 15:06:40 No significant changes Electronically Signed On 07-06-2023 17:20:03 HEAD OF MEASUREMENT & INSIGHTS by oRberto Wheeler M.D. [id number]
[2023-07-05 19:28] LABS: Troponin 5 6HR 19.85 ng/L (0-15)
[2023-07-05 19:36] LABS: Troponin 5 6HR Delta 3.85 ng/L (0-12)
[2023-07-05] MEDS: atorvastatin 40 mg Tablet PO (21:20)
[2023-07-05] MEDS: lisinopril 5 mg Tablet PO (21:20)
[2023-07-06] VITALS (54 sets, daily range): BP systolic 113–131; BP diastolic 67–98; PULSE 65–96; RESP 14–32; TEMP 36.2–36.7; O2SAT 91–99; BMI 24.3
[2023-07-06 00:13] LABS: Add Urine Microscopic? NO; Charge for UA Resulting for Rev
[2023-07-06 00:14] LABS: Bilirubin Urine Neg (Negative); Blood Urine Neg (Negative); Glucose Urine UA Norm (Normal); Ketones Urine Negative (Negative); Leukocyte Esterase Urine Negative (Negative); Nitrate Urine Negative (Negative); Protein Urine Neg (Negative); Specific Gravity, Urine 1.015 (1.005-1.030); Urine Appearance Clear (CLEAR); Urine Color Yellow (Yellow); Urobilinogen Urine Neg (Negative); pH Urine 6.5 (5-7)
[2023-07-06 00:23] LABS: Amphetamines Screen Urine Negative (Negative); Barbiturates Screen Urine Negative (Negative); Benzodiazepines Screen Urine Negative (Negative); Cocaine Screen Urine Negative (Negative); Opiate Screen Urine Negative (Negative); PCP Screen Urine Negative (Negative); THC Screen Urine Negative (Negative)
[2023-07-06] MEDS: heparin 5,000 unit/mL INJ 1 mL 5000 UNIT SUBCUT (06:00)
--- NOTE | 2023-07-06 06:00 | NMCV_ITS ---
NM ron perf SPECT r/s* [id number] Red Macdonald Age: 63 Gender: M : 1960 Exam Date: 07/06/2023 06:33 Ordering Phys: Roberto Wheeler MD ([email or web address]) Technologist: ANAIS Butler Exam Location: [facility] Indications: CHEST PAIN STRESS TEST Please see separate stress test report in [facility] for full findings IMAGE PROTOCOL Rest/Stress 1 Exercise Day Radiopharmaceutical Dose (mCi) Administration Site Administered by Rest: Tc-99m 11.0 IV ANAIS [place] Sestamibi Stress:Tc-99m 32.5 IV ANAIS [place] Sestamibill Rest: 06-Jul-2023 60 Discovery 630 Stress: 06-Jul-2023 30 Discovery 630 Radiopharmaceutical was injected at 85 % maximum heart rate. Images obtained in supine and prone position. SPECT RESULTS Technical Quality: Excellent Raw Data Analysis: Normal Image Corrections: No attenuation or motion correction applied Summed Stress Score: 0 Summed Rest Score: 0 Summed Difference Score: 0 PERFUSION FINDINGS Uniform myocardial tracer uptake with no significant perfusion abnormalities FUNCTIONAL RESULTS (calculated via Gated SPECT) Stress Image LV EF (%): 61 Stress EDV (mL):126 TID: 0.86 Stress ESV (mL):49 FUNCTIONAL FINDINGS: Segmental wall motion analysis revealing no gross wall motion abnormalities IMPRESSIONS 1. Unremarkable Myocardial perfusion imaging 2. Normal LV ejection fraction of 61% 3. LV wall motion analysis revealing no gross wall motion abnormalities. 4. Normal LV volume Low probability for coronary ischemia, based on the above findings Dr Tal Peña MD FACC (Electronically Signed) Final Date: 06 July 2023 14:27 S
[2023-07-06] MEDS: aspirin 81 mg EC Tablet PO (06:15)
[2023-07-06 08:27] LABS: Alanine Aminotransferase 15 U/L (0-41); Albumin Level 3.8 g/dL (3.5-5.2); Alkaline Phosphatase 52 U/L (40-130); Anion Gap 16.3 (5-19); Aspartate Amino Transferase 28 U/L (0-40); Blood Urea Nitrogen 8 mg/dL (8-23); Calcium 9.1 mg/dL (8.5-10.5); Carbon Dioxide 24 mmol/L (22-29); Chloride 106 mmol/L (98-107); Chol HDL Ratio 4.53 mg/dL (1.0-5.00); Cholesterol 163 mg/dL (0-200); Globulin 1.9 g/dL (1.3-4.6); Glomerular Filtration Rate 85.5 mL/min (90-130); Glucose 92 mg/dL (65-115); HDL Cholesterol 36 mg/dL (60-100); LDL Cholesterol Calculated 109 mg/dL (50-129); LDL HDL Ratio 3.03 RATIO (0.00-3.22); Magnesium 2.1 mg/dL (1.7-2.3); Osmolality Calculated 292 mOsm/kg (285-295); Phosphorus 4.1 mg/dL (2.5-4.5); Potassium 4.3 mmol/L (3.5-5.1); Sodium 142 mmol/L (136-145); Total Bilirubin 0.5 mg/dL (0.15-1.2); Total Protein 5.7 g/dL (6.6-8.7); Triglycerides 92 mg/dL (0-150)
[2023-07-06 08:28] LABS: Estmated Average Glucose 105; Folate Level 10.9 ng/mL (4.5-32.2); Hemoglobin A1C 5.3 % (4.0-6.0)
[2023-07-06] MEDS: famotidine 20 mg Tablet PO (09:15)
[2023-07-06] MEDS: lactated ringers 1,000 ML 125 ML IV (09:15)
[2023-07-06 09:19] LABS: Basophils % 0.7 %; Eosinophils # 0.1 10^3/uL (0.0-0.8); Eosinophils % 2.3 %; Hematocrit 41.8 % (37-53); Lymphocytes # 2.5 10^3/uL (0.8-4.8); Lymphocytes % 44.4 %; Mean Corpuscular HGB Conc 33.5 g/dL (30-55); Mean Corpuscular Hemoglobin 31.3 pg (27-33); Mean Corpuscular Volume 93.3 fl (82-101); Mean Platelet Volume 12.4 fL (7.4-10.4); Monocytes # 0.5 10^3/uL (0.2-0.9); Neutrophils # 2.42 10^3/uL (1.8-7.7); Neutrophils % 43.4 %; Nucleated Red Blood Cells % 0 %; Platelet Count 194 10^3/cmm (157-399); Red Blood Count 4.48 10^6/uL (3.85-5.65); Red Cell Distribution Width 13.6 % (12.1-15.1); White Blood Count 5.58 10^3/uL (3.29-11.43)
--- NOTE | 2023-07-06 09:49 | PC.CHAP ---
Pastoral Care Encounter/Spiritual Assessment Type of Contact [] Declined christian counselor visit [] Patient/Family/Request visit [] Outpatient visit [] Follow-up visit [] Physician referral [] Code/Alert [x] Routine visit [] Staff referral [] Actively dying [] Patient sleeping [x] Family support [] [] Out of room [] Palliative care [] [] Receiving care in room [] Pre-surgical visit [] Trauma [] Long length of stay [] ICU visit [] Other: Relational/Emotional Strength [x] Patient feels connected with others/family/visitors/staff [] Distress [] Loneliness/isolation [] Abandonment Spirituality of Patient [x] Person of [place]omara [x] Attends Hinduism of their [place] [x] Believes in Prayer [x] Reads Bible or Advent materials [] There are Spiritual issues to be addressed Mold Sheet Cleaner Interventions [x] Prayer [x] Active listening [] Non-anxious presence [x] Spiritual/emotional support [] Crisis/trauma care [] Spiritual counseling [] Bereavement support [] Provided bereavement packet [] Provided Bible/devotional materials [] Provided toy/stuffed animal, coloring book to patient or family member [] Provided Communion [] Anointing/[place] [] Salvation [x] Completed spiritual assessment [] Other: Impact on Illness or Injury [] Angry [] Fearful [] Anxious [] Often cries [] Exhaustion [] Unable to work [] Unable to attend zoroastrian [] Unable to walk/stand [] Unable to read [] Unable to drive [] Unable to eat/drink [] Unable to sleep [] Unable to be with family [] Patient intubated [] Other: Summary Time spent with patient 10 min
--- NOTE | 2023-07-06 15:03 | PM.DCS ---
Discharge Providers Date of Admission: 07/05/23 14:14 Date of Discharge: July 06, 2023 Attending Provider at Admission: Mendel Molina MD Attending Provider at Discharge: Mendel Molina MD Consults: Cardiology: Dr. Wheeler Primary Care Provider: MARCELINO Rodriguez Diagnoses at Discharge Discharge Diagnosis (1) Syncope: Status: Acute (2) Bigeminal rhythm: Status: Acute (3) Hyperlipidemia: Status: Acute (4) Elevated BP without diagnosis of hypertension: Status: Acute Reason for Visit Reason for Visit: sent over by for heart issues Hospital Course Hospital Course Red Macdonald is a 63 year old male with past medical history of hypertension who presented to the ER 2 days ago with episode of syncope with shortness associated with diaphoresis, lightheadedness while he was getting up from the couch. On that presentation patient was found to have mild bigeminy on the EKG but had a creatinine of 1.5 hence he was thought to have syncope secondary dehydration. Fluid resuscitation was done and he was discharged with advised to follow-up with his PCP. Today when he was seen by his PCP in the office EKG showed significant bigeminy and trigeminy. Since discharge from the ER patient has not had any further syncope but continues to have significant amount of intermittent dizziness hence he was sent back to the ER. In the ER he was found to have frequent bigeminy's and trigeminy with heart rate trending in low 40s with increasing frequency of trigeminy on minimal ambulation along with symptoms. Patient was admitted to the hospital further evaluation and management. He underwent echocardiogram which showed normal EF without regional wall motion abnormality. ACS was ruled out with negative troponin and normal exercise Lexiscan stress test. Patient was started on low-dose long-acting beta-eugenio. He has been discharged hemodynamically stable condition on event monitor with advised to follow-up with cardiology within next 1 month. He is being described and counseled in detail regarding danger signs and symptoms. He has been advised not to drive till cleared by cardiology or to walk around sharp objects. Discharge plan discussed in detail with patient and family members at bedside who verbalized understanding. All the questions were answered. Physical Exam Narrative: General: No acute distress, AO x3 HEENT: PERRLA, pupils bilaterally equal and reactive Chest: Normal vesicular breath sounds, no added sounds, equal good air entry bilaterally CVS: S1-S2 regular, no murmurs, bradycardia, no gallops, no rubs Abdomen: Soft, nontender, no organomegaly, bowel sounds present Neuro: No focal deficits, no facial deformity, AO x3, power 5/5 in all limbs Discharge Data Studies Completed and Pending Completed Studies During Hospitalization Category Date Time Status Cardiac Stress Test MIBI [Sestamibi Stress Test Request Exams 07/05/23 15:20 Draft ] Routine XR chest 1V portable [id number] Stat Exams 07/05/23 12:57 Completed NM ron perf SPECT r/s* [id number] Routine Nuc Med 07/06/23 06:00 Completed US echo complete [CV. echo complete* [id number]] Routine Ultrasound 07/05/23 15:18 Completed Pending at discharge Category Date Time Status Free T4 Free Thyroxine Routine Lab 07/06/23 15:02 Ordered T3 Free Routine Lab 07/06/23 15:02 Ordered Radiology Impressions Chest X-Ray 07/05/23 12:57 IMPRESSION: No acute findings. Echocardiogram CONCLUSIONS Frequent PVCs during the echo study. Mild concentric LVH. Normal LV systolic function. LVEF estimated at 60%. Normal chamber sizes. No significant valvular abnormality noted. Normal right heart and pulmonary pressures. Roberto Wheeler MD (Electronically Signed) Final Date: 05 July 2023 Stress test PERFUSION FINDINGS Uniform myocardial tracer uptake with no significant perfusion abnormalities FUNCTIONAL RESULTS (calculated via Gated SPECT) Stress Image LV EF (%): 61 Stress EDV (mL):126 TID: 0.86 Stress ESV (mL):49 FUNCTIONAL FINDINGS: Segmental wall motion analysis revealing no gross wall motion abnormalities IMPRESSIONS 1. Unremarkable Myocardial perfusion imaging 2. Normal LV ejection fraction of 61% 3. LV wall motion analysis revealing no gross wall motion abnormalities. 4. Normal LV volume Low probability for coronary ischemia, based on the above findings Dr Tal Peña MD [facility] (Electronically Signed) Final Date: 06 July 2023 Laboratory Results WBC 5.58 10^3/uL (3.29-11.43) 07/06/23 03:30 RBC 4.48 10^6/uL (3.85-5.65) 07/06/23 03:30 Hgb 14.00 g/dL (11.27-16.99) 07/06/23 03:30 Hct 41.8 % (37-53) 07/06/23 03:30 MCV 93.3 fl (82-101) 07/06/23 03:30 MCH 31.3 pg (27-33) 07/06/23 03:30 MCHC 33.5 g/dL (30-55) 07/06/23 03:30 RDW 13.6 % (12.1-15.1) 07/06/23 03:30 Plt Count 194 10^3/cmm (157-399) 07/06/23 03:30 MPV 12.4 fL (7.4-10.4) H 07/06/23 03:30 Neut % (Auto) 43.4 % 07/06/23 03:30 Lymph % (Auto) 44.4 % 07/06/23 03:30 [place] % (Auto) 9.0 % 07/06/23 03:30 Eos % (Auto) 2.3 % 07/06/23 03:30 Baso % (Auto) 0.7 % 07/06/23 03:30 Neut # (Auto) 2.42 10^3/uL (1.8-7.7) 07/06/23 03:30 Lymph # (Auto) 2.5 10^3/uL (0.8-4.8) 07/06/23 03:30 [place] # (Auto) 0.5 10^3/uL (0.2-0.9) 07/06/23 03:30 Eos # (Auto) 0.1 10^3/uL (0.0-0.8) 07/06/23 03:30 Baso # (Auto) 0.0 10^3/uL (0.0-0.1) 07/06/23 03:30 Nucleated RBC % (auto) 0 % 07/06/23 03:30 Nucleated RBCs # 0.0 /100WBC 07/06/23 03:30 PT 12.50 SECONDS (12.1-14.9) 07/05/23 13:14 INR 0.91 (0.8-1.2) 07/05/23 13:14 APTT 23.7 SECONDS (23.9-36.7) L 07/05/23 13:14 Sodium 142 mmol/L (136-145) 07/06/23 03:30 Potassium 4.3 mmol/L (3.5-5.1) 07/06/23 03:30 Chloride 106 mmol/L (98-107) 07/06/23 03:30 Carbon Dioxide 24 mmol/L (22-29) 07/06/23 03:30 Anion Gap 16.3 (5-19) 07/06/23 03:30 BUN 8 mg/dL (8-23) 07/06/23 03:30 Creatinine 0.9 mg/dL (0.7-1.2) 07/06/23 03:30 GFR Calculation 85.5 mL/min (90-130) L 07/06/23 03:30 Glucose 92 mg/dL (65-115) 07/06/23 03:30 Estimat Average Glucose 105 07/06/23 03:30 Hemoglobin A1c 5.3 % (4.0-6.0) 07/06/23 03:30 Calculated Osmolality 292 mOsm/kg (285-295) 07/06/23 03:30 Calcium 9.1 mg/dL (8.5-10.5) 07/06/23 03:30 Phosphorus 4.1 mg/dL (2.5-4.5) 07/06/23 03:30 Magnesium 2.1 mg/dL (1.7-2.3) 07/06/23 03:30 Iron 151 ug/dL (59-158) 07/05/23 15:17 TIBC 267 mcg/dl 07/05/23 15:17 % Saturation 56.5 % (20-50) H 07/05/23 15:17 Unsat Iron Binding 116 ug/dL (112-347) 07/05/23 15:17 Total Bilirubin 0.5 mg/dL (0.15-1.2) 07/06/23 03:30 AST 28 U/L (0-40) 07/06/23 03:30 ALT 15 U/L (0-41) 07/06/23 03:30 Alkaline Phosphatase 52 U/L (40-130) 07/06/23 03:30 Troponin T Baseline 16 ng/L (0-15) H 07/05/23 13:14 Troponin T 120 Minute 22.02 ng/L (0-15) H 07/05/23 15:17 Delta Troponin T 6.02 ABS# (0-10) 07/05/23 15:17 Troponin T Hi Sens 6Hr 19.85 ng/L (0-15) H 07/05/23 18:55 Troponin T Hi Sens 6Hr Delta 3.85 ng/L (0-12) 07/05/23 18:55 NT-Pro-B Natriuret Pep 304 pg/mL (0-125) H 07/05/23 13:14 Total Protein 5.7 g/dL (6.6-8.7) L 07/06/23 03:30 Albumin 3.8 g/dL (3.5-5.2) 07/06/23 03:30 Globulin 1.9 g/dL (1.3-4.6) 07/06/23 03:30 Triglycerides 92 mg/dL (0-150) 07/06/23 03:30 Cholesterol 163 mg/dL (0-200) 07/06/23 03:30 LDL Cholesterol, Calc 109 mg/dL (50-129) 07/06/23 03:30 HDL Cholesterol 36 mg/dL (60-100) L 07/06/23 03:30 LDL/HDL Ratio 3.03 RATIO (0.00-3.22) 07/06/23 03:30 Cholesterol/HDL Ratio 4.53 mg/dL (1.0-5.00) 07/06/23 03:30 Vitamin B12 622 pg/mL (232-1245) 07/05/23 15:17 Folate 10.9 ng/mL (4.5-32.2) 07/06/23 03:30 TSH 4.23 uIU/mL (0.27-4.20) H 07/05/23 15:17 Urine Color Yellow (Yellow) 07/05/23 23:53 Urine Appearance Clear (CLEAR) 07/05/23 23:53 Urine pH 6.5 (5-7) 07/05/23 23:53 Ur Specific [place] 1.015 (1.005-1.030) 07/05/23 23:53 Urine Protein Neg (Negative) 07/05/23 23:53 Urine Glucose (UA) Norm (Normal) 07/05/23 23:53 Urine Ketones Negative (Negative) 07/05/23 23:53 Urine Blood Neg (Negative) 07/05/23 23:53 Urine Nitrate Negative (Negative) 11/27/23 23:53 Urine Bilirubin Neg (Negative) 07/05/23 23:53 Urine Urobilinogen Neg mg/dL (Negative) 07/05/23 23:53 Ur Leukocyte Esterase Negative (Negative) 07/05/23 23:53 Urine Opiates Screen Negative ng/mL (Negative) 07/05/23 23:53 Ur Barbiturates Screen Negative ng/mL (Negative) 07/05/23 23:53 Ur Phencyclidine Scrn Negative ng/mL (Negative) 07/05/23 23:53 Ur Amphetamines Screen Negative ng/mL (Negative) 07/05/23 23:53 U Benzodiazepines Scrn Negative ng/mL (Negative) 07/05/23 23:53 Urine Cocaine Screen Negative ng/mL (Negative) 07/05/23 23:53 U Marijuana (THC) Screen Negative ng/mL (Negative) 07/05/23 23:53 Vitals Last Vital Signs Temp 98.0 F 07/06/23 09:01 Pulse 84 07/06/23 09:01 Resp 20 H 07/06/23 09:01 BP 131/98 07/06/23 09:01 Pulse Ox 97 07/06/23 09:01 O2 Del Method Room Air 07/06/23 09:01 Discharge Plan Discharge Patient Disposition: Home Condition: Stable Prescriptions: New atorvastatin 40 mg Tablet 20 mg PO BEDTIME Qty: 30 0RF metoprolol succinate 25 mg Tablet Extended Release 24 Hr 25 mg PO DAILY Qty: 30 0RF Continued Active B Complex 1 tab PO QAM Aspir-81 81 mg Tablet,Delayed Release (Dr/Ec) 81 mg PO QAM EPA-DHA Capsule 1 cap PO QAM Vitamin D3 125 mcg (5,000 unit) Tablet 250 mcg PO QAM lisinopril 5 mg tablet 5 mg PO BEDTIME multivitamin Tablet 1 tab PO QAM Changed Zyrtec 10 mg Tablet 10 mg PO QAM PRN (Reason: allergy) Qty: 2 0RF Discontinued Black Seed Oil 1 cap PO QAM Discharge Orders: Discharge Order (Routine); Ordered 07/06/23 Ordered By: Mendel Molina Other Ambulatory Orders: MCT/Event Monitor 21 Days (Routine) Timeframe: 1 Day Facility: [facility] - Location: Radiology Ordered By: Mendel Molina Referrals: Dixie Elizabeth FNP [Primary Care Provider] - 4-7 days Tal Peña MD [Physician] - 1 month Discharge Diet: Cardiac Discharge Activity: Resume usual activity and Increase activity as tolerated Patient Instructions: Opioid Safety Activity Restrictions/Additional Instructions: Please follow-up with cardiology within next 1 month. Please follow-up with your primary care provider within next 1 week. Metoprolol has been added to your medication list. Please make sure you follow-up the appointment for event monitor. Please try to avoid walking around sharp objects. Try to avoid driving by yourself till cleared by your primary care provider. Check your blood pressures daily at home maintain a blood pressure diary and follow-up with a primary care provider within next 1 week for further adjustment of antihypertensives. Discharge Attestations Time Spent in Discharge Care*: greater than 30 min Specific Discharge Activities: educating patient, educating and/or supporting family/caregiver, discussing with pcp/other providers, discussing with case briefer/social workers/dc planners, documenting/other paperwork and evaluating patient/reviewing data Quality Metrics Clinical Quality Measures [ No reported AMI, CVA or VTE this stay] Coding Level of Care Code 99334 Total time (in minutes) for Discharge: 60 Diagnoses Syncope R55 Bigeminal rhythm I49.8 Hyperlipidemia E78.5 Elevated BP without diagnosis of hypertension R03.0
[2023-07-06] MEDS: metoprolol succinate ER (24 HR) 25 mg Tablet PO (15:24)
[2023-07-06 16:11] LABS: Free T4 Free Thyroxine 1.11 ng/dL (0.82-1.77); T3 Free 3.6 PG/ML (2.0-4.4)
== END 2023-07-06 16:01 | disposition home or self-care (01) ==
LOC: ER 13:00 → ER IP 15:12 → CSU 07-06 15:04 → ER IP 07-06 15:47
PROVIDERS: Admitting Provider Student in an Organized Health Care Education/Training Program; Emergency Provider Internal Medicine; PCP Nurse Practitioner Family; Visit Provider Student in an Organized Health Care Education/Training Program
DX: R55 Syncope and collapse (principal); I49.8 Other specified cardiac arrhythmias; E78.5 Hyperlipidemia, unspecified; R03.0 Elevated blood-pressure reading, without diagnosis of hypertension; I10 Essential (primary) hypertension; Z79.82 Long term (current) use of aspirin
CPT/HCPCS: 36415; 71045; 78452; 80053; 80061; 80306; 81003; 82607; 82746; 83036; 83540; 83550; 83735; 83880; 84100; 84439; 84443; 84481; 84484; 85025; 85610; 85730; 93005; 93017; 93306; 94664; 96360; 96361; 96372; 99285; A9500; G0378; J1644; J7120

== ENCOUNTER → 2023-07-27 09:53 | Outpatient (BNVA) | payer OTHER, SELFPAY | PROVIDERS: PCP Nurse Practitioner Family; Visit Provider Nurse Practitioner Family | DX: I49.9 Cardiac arrhythmia, unspecified (principal); I49.8 Other specified cardiac arrhythmias; R00.1 Bradycardia, unspecified; T14.8XXA Other injury of unspecified body region, initial encounter; W57.XXXA Bitten or stung by nonvenomous insect and other nonvenomous arthropods, initial encounter | CPT/HCPCS: 86003; 86008 ==

== ENCOUNTER → 2023-10-19 11:13 | Outpatient (BNVA) | payer OTHER, SELFPAY | PROVIDERS: PCP Nurse Practitioner Family; Visit Provider Nurse Practitioner Family | DX: J32.9 Chronic sinusitis, unspecified (principal) | CPT/HCPCS: 87400; 87426 ==

== ENCOUNTER → 2023-10-26 13:57 | Outpatient (BNVA) | payer OTHER, SELFPAY | PROVIDERS: PCP Nurse Practitioner Family; Visit Provider Nurse Practitioner Family | DX: R53.83 Other fatigue (principal); I10 Essential (primary) hypertension; R00.1 Bradycardia, unspecified; I47.29 Other ventricular tachycardia; I51.7 Cardiomegaly | CPT/HCPCS: 93005 ==

== ENCOUNTER → 2023-10-26 15:37 | Outpatient (BNVA) | payer OTHER, SELFPAY | PROVIDERS: PCP Nurse Practitioner Family; Visit Provider Nurse Practitioner Family | DX: R53.83 Other fatigue (principal); I10 Essential (primary) hypertension | CPT/HCPCS: 80053; 84403; 84439; 84443; 84481; 85025 ==

== ENCOUNTER → 2023-11-01 15:08 | Outpatient (BNVA) | payer OTHER, SELFPAY | PROVIDERS: PCP Nurse Practitioner Family; Visit Provider Nurse Practitioner Family | DX: R79.89 Other specified abnormal findings of blood chemistry (principal) | CPT/HCPCS: 84403 ==

== ENCOUNTER 2023-11-09 08:39 | Outpatient (CLI) | payer OTHER, MEDICAID, SELFPAY ==
[2023-11-09 09:43] LABS: INR 0.94 (0.8-1.2)
== END 2023-11-09 08:40 | disposition home or self-care (01) ==
LOC: LAB 08:41
PROVIDERS: PCP Nurse Practitioner Family; Visit Provider Internal Medicine Cardiovascular Disease
DX: I48.91 Unspecified atrial fibrillation (principal); I25.118 Atherosclerotic heart disease of native coronary artery with other forms of angina pectoris
CPT/HCPCS: 36415; 85610; 86850; 86900

== ENCOUNTER 2023-11-10 06:53 | Outpatient (CLI) | payer MEDICAID, SELFPAY ==
--- NOTE | 2023-11-10 07:15 | US_ITS ---
WS: [id number] ULTRASOUND THYROID TECHNIQUE: Ultrasound of the thyroid. CLINICAL INFORMATION: R79.89 - Other specified abnormal findings of blood chemi... COMPARISON: None. FINDINGS: Thyroid: Right and left thyroid lobes are normal in size and echotexture. Ovoid hypoechoic nodule near the RIGHT isthmus measuring 8.0 x 3.0 x 7.0 mm No left-sided nodules. Right thyroid lobe: 4.5 cm x cm x cm Left thyroid lobe: 3.2 cm x 1.0 cm x 1.8 cm. Isthmus: 0.3 mm. Cervical lymphadenopathy: None. IMPRESSION: Ovoid hypoechoic nodule near the RIGHT isthmus measuring 8.0 x 3.0 x 7.0 mm TIRADS Category 4: Moderately suspicious (total points = 4) FNA if 1.5 cm Follow if 1 cm (at 1, 2, 3, and 5 years)
== END 2023-11-10 06:54 | disposition home or self-care (01) ==
LOC: RAD 06:53
PROVIDERS: PCP Nurse Practitioner Family; Visit Provider Nurse Practitioner Family
DX: R79.89 Other specified abnormal findings of blood chemistry (principal); E04.1 Nontoxic single thyroid nodule
CPT/HCPCS: 76536

== ENCOUNTER 2023-11-11 09:49 | Observation (INO) | payer OTHER, MEDICAID, SELFPAY ==
--- NOTE | 2023-11-11 06:00 | XACV_ITS ---
Exam Room: 2 Ht: 183 cm Wt: 82 kg BSA: 2.05 m2 Gender: Male : 1960 Any Known Allergies: No known allergies Exam Priority: Routine Procedure(s): Procedure Description: Diagnostic procedure Procedure Description: Left Heart Catheterization Procedure Description: Left ventriculography Procedure Description: Miscellaneous Procedure Description: ACT Procedure Description: Coronary Angiography Procedure Description: Pressure Wire aCsey PRESCOTT; Diagnostic Cath Status: Elective Diagnostic Findings * Left main is a short medium caliber vessel with no significant stenotic lesions. * The left anterior descending artery is a medium caliber vessel which was found to have a segmental narrowing of around 50% after the first diagonal branch. The antegrade flow in the artery beyond this lesion was found to be sluggish. Mild to moderate diffuse calcification was noted in the proximal LAD. The rest of the vessel was found to have no significant lesions. * The intermedius artery was found to be a small to medium caliber high diagonal vessel with no significant as noted lesions. * The left circumflex artery is a medium caliber vessel patient was found to have mild diffuse intimal irregularities proximally with minimal calcification. No significant stenotic lesions were noted. * The right coronary artery was found to have a high and posterior takeoff. Multiple catheters had to be tried. Eventually the angiogram was performed using an AL-1 catheter. even with this selective engagement was difficult but the artery was well-visualized. The artery is aa medium caliber dominant vessel with mild diffuse disease. The PDA and the PLV branches also were found to have mild diffuse intimal irregularities. Mild diffuse calcification was noted in the proximal segment of the artery. Interventional Findings * Procedure detail: We engaged left main artery with XB 3.5 guide catheter. IV heparin was administered to maintain ACT above 250s. After normalization, iFR was advanced to distal LAD. iFR value of 0.91 was obtained. As this was non-ischemic, we decided to proceed with medical therapy. Guidewire and guide catheter were removed. Patient left general labor in a stable condition. Conclusions 1. This is a 63-year-old white male, with a history of elevated blood pressure, dyslipidemia was admitted to hospital with complaints of dizziness/syncopal episode. He was found to have frequent PVCs on the event monitor accounting for 21% of total heartbeats. He had a Myocardial perfusion imaging which was unremarkable. Echocardiogram revealed normal LV ejection fraction. In view of his ongoing symptoms of tiredness/dizziness/weakness, in order to further evaluate his coronary status, a cardiac catheterization was recommended. Patient underwent left heart catheterization with left and right coronary angiogram today. The findings are as follows. 2. Around 50% segmental stenosis in the mid LAD with a sluggish flow in the distal artery. Mild diffuse disease in the other vessels. Mild to moderate calcification in the proximal segments of all the arteries. LV ejection fraction of 45 to 50%. Mild diffuse hypokinesia of the left-ventricule. LVEDP 21 mmHg. 3. In view of the abnormal flow pattern and the lesion in the LAD, it was thought to be appropriate to consider IFR of this lesion. I reviewed and discussed the cardiac catheterization data with Dr. Fields. Dr. Fields concurred with this plan and took over further management of this patient at this point. 4. iFR value of LAD and a value of 0.91 was obtained that was non-ischemic. Medical therapy was decided. Recommendations * Aggressive medical therapy. * Outpatient cardiology follow up in 2-4 weeks. Interventional RX Recommendation: medical therapy and/or counseling Diagnostic RX Recommendation: other cardiac therapy w/o CABG/PCI Ventriculography Ejection Fraction: 45.0 % LV EDP: 21 mmHg Left Ventriculography Findings: * LV gram was performed in the ABRAHAM projection. There was mild diffuse hypokinesia of the left ventricular. LV ejection fraction was around 45 to 50%. LVEDP was 21 mmHg. No filling defects were noted. No significant mitral valve prolapse or mitral regurgitation. Pressures Phase:Rest AO : 114 / 66 ( 86 ) @ 8:48:00 AM 111 / 79 ( 98 ) @ 8:51:00 AM 118 / 78 ( 98 ) @ 8:52:00 AM 124 / 83 ( 103 ) @ 8:55:00 AM 147 / 80 ( 108 ) @ 9:20:00 AM 154 / 70 ( 107 ) @ 9:20:00 AM 123 / 84 ( 103 ) @ 9:29:00 AM 126 / 66 ( 87 ) @ 9:34:00 AM 131 / 79 ( 100 ) @ 9:40:00 AM LV : 142 / 1 / 21 @ 9:19:00 AM 141 / 0 / 22 @ 9:20:00 AM 144 / 1 / 24 @ 9:20:00 AM Valves Phase:DefaultPhase AV : 0.0 @ 8:57:57 AM 0.0 @ 8:57:57 AM AV Mean Gradient: 0.0 @ 8:57:57 AM 0.0 @ 8:57:57 AM Clinical Evaluation EBL: 5mL-10mL Procedural Details Pre-Procedure Time Out. Identified patient by full name and date of as verbalized by the patient/guarantor. Does the consent match the physician's order: Yes. Accurate & Complete Informed Consent: Yes. Inpatient/Outpatient History & Physical on Chart: Yes. If H&P is completed, is and addenduem needed: No; If yes, is the addendum complete: N/A. Visualize and Verify Site with Patient/Guarantor: N/A. Relevant Radiology Images available: Yes. Pre-op teaching completed and patient verbalized understanding. The risks, benefits, and alternatives of sedation and/or procedure were discussed by physician. The patient agrees to continue. Procedure started. Current Diagnosis : Chest Pain. [facility] Clinical Fraility Score: 3: Managing Well. 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 Chest Pain Symptom Assessment: Atypical Angina. Correct patient, site and procedure confirmed by cath team. Current diagnosis: Chest Pain. PERRLA. 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 Lungs clear x 5 lobes. IV Site on Arrival: 20 gauge in the left anticubital. IV Fluids: 0.9% NaCl at KVO. 0 mL infused prior to general labor. Pre Procedural Pulses: bilateral dorsalis pedis was 2+. Pre Procedural Pulses: bilateral posterior tibial was 1+. Pre Procedural Pulses: bilateral radial was 2+. Oxygen started at 2liters/min via nasal canula. right groin was prepped with chloroprep then draped in the usual sterile fashion. right radial was prepped with chloroprep then draped in the usual sterile fashion. Baseline sample Acquired. HR: 48 BPM. Physician arrived. Physician scrubbed in. Immediate Pre-Procedure Time Out. Correct Patient: Yes; Correct Procedure: Yes; Correct Site: Yes; Correct Patient Position: Yes; Correct Supplies: Yes; Dried Flammable Prep: Yes; Blood Products Available: N/A;. Lidocaine 1% infiltrated to the right radial. Unable to obtain radial access. MD attempting to gain access in the Femoral artery. Lidocaine 1% infiltrated to the right groin. Arterial access obtained with micropuncture set. A 5 japanese JL4 catheter in over wire. Multiple views taken of left coronary artery. Catheter removed over the standard wire. A 5 japanese JR4 catheter in over wire. Catheter removed over the standard wire. A 5 japanese AR MOD catheter in over wire. Catheter removed over the standard wire. A 5 japanese AL1 catheter in over wire. Catheter removed over the standard wire. A 5 japanese 3DRC catheter in over wire. Catheter removed over the standard wire. A 5 japanese Angled Pig catheter in over wire. EDP Sample taken: LV 142/1,21; HR: 49 BPM; SpO2: 100%. LV gram performed in ABRAHAM @ 10 mL/second for a total of 30 mL. EDP Sample taken: LV 141/0,22; HR: 54 BPM; SpO2: 100%. Pullback taken: LV 144/1,24; AO 147/80(108); Mean: 0mmHg, Peak to Peak: 0mmHg, SEP: 13sec/min; HR: 54 BPM; SpO2: 100%. Catheter removed over the standard wire. A 5 japanese AR MOD catheter in over wire. Catheter removed over the standard wire. Dr. Peña scrubbed out. Dr. Fields scrubbed in. A 5 japanese AL1 catheter in over wire. Multiple views taken of right coronary artery. Catheter removed over the standard wire. 6 japanese XB 3.5 guide catheter was inserted over the wire. FFR guidewire was advanced through the guide catheter to lesion in the mid LAD. IFR Results: 0.91. Wire out. Results checked. Guide catheter out. ACT drawn. Results 261 seconds. Therapeutic limits - pre-heparin administration 90-150 seconds and monitoring heparin during a vascular procedure >250 seconds. A Right femoral angiogram was performed to determine safe placement of closure device. Lidocaine 1% infiltrated to the right groin. A Angio-Seal VIP ([place]) was successful obtaining hemostatsis at the Right Femoral artery insertion site. Post Procedure: Pulses reassessed and unchanged. PERRLA. 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 No VTE prophylaxis required. Medication's Wasted: Other = Fentanyl 25 mcg. Medication's Wasted: Verapamil = 5 mg. Medication's Wasted: Heparin = 4500 units. Total IV fluids: 350 mL. Complications: None. Estimated blood loss: 5mL-10mL. Responsiveness - Normal response to verbal stimuli; alert and oriented, PERRLA. Airway - Unaffected, no intervention required; spontaneous ventilation. Circulation: W/N/L, pulses unchanged. Nausea/Vomiting: No. Procedure completed. Patient transferred by bed to CPRU. Vital chart was stopped. Access Site Site: Right Femoral artery Sheath Size: 6 Fr Hemostasis Method: Angio-Seal VIP ([place]) Hemostasis Success: Successful Procedure Medications Start: 7:20 AM Stop: 7:20 AM Medication: Versed Amount: 1 mg Route: I.V. Start: 7:21 AM Stop: 7:21 AM Medication: Fentanyl Amount: 25 mcg Route: I.V. Start: 7:31 AM Stop: 7:31 AM Medication: 0.9% Saline Amount: 250 ml Route: I.V. bolus Start: 7:33 AM Stop: 7:33 AM Medication: Nitrogylcerin Amount: 25 mcg Route: S.Q. Start: 7:41 AM Stop: 7:41 AM Medication: Versed Amount: 1 mg Route: I.V. Start: 7:47 AM Stop: 7:47 AM Medication: Heparin Amount: 1500 units Route: I.V. Start: 8:19 AM Stop: 8:19 AM Medication: Fentanyl Amount: 25 mcg Route: I.V. Start: 8:38 AM Stop: 8:38 AM Medication: Heparin Amount: 5000 units Route: I.V. Start: 8:39 AM Stop: 8:39 AM Medication: Fentanyl Amount: 25 mcg Route: I.V. I, the attending physician, have reviewed and verified all procedure medications. Yes, all medications given per verbal order History/Risk Factors Hypertension: No Dyslipidemia: Yes Peripheral Arterial Disease (PAD): No Myocardial Infarction (VA): No Obesity: No Renal Disease: No Tobacco Use: Never Prior Interventions PCI: No CABG: No Valve Surgery: No Report Signatures Interventional Workflow Finalized by Rodolfo Fields MD on 11/21/2023 12:40 PM Diagnostic Workflow Finalized by Dr Tal Peña MD [facility] on 11/11/2023 07:31 PM
[2023-11-11 06:05] VITALS: BP 126/94; PULSE 60; RESP 18; TEMP 36.6; O2SAT 94; BMI 24.5
[2023-11-11] MEDS: aspirin 325 mg Tablet PO (06:49)
[2023-11-11] MEDS: diphenhydrAMINE 50 mg Capsule PO (06:49)
--- NOTE | 2023-11-11 07:08 | W.PM.OPSUD ---
Surgery/Procedure H&P Update DATE OF PROCEDURE: November 11, 2023 DATE H&P PERFORMED: 10/27/23 H&P UPDATE INFORMATION: I have reviewed H&P completed within last 30 days, I have examined patient prior to procedure and No changes to prior documentation PREOP DIAGNOSIS: ashd PRIMARY INDICATION FOR PROCEDURE: Ventricular arrhythmia/hypertension/dyslipidemia/ongoing symptoms PLANNED PROCEDURE: Operation Date: 11/11/23 07:00 Proposed Procedures p Cardiac Catheterization(Not Applicable) - Tal Peña MD PATIENT REASSESSED PRIOR TO SEDATION, WITH NO CHANGE NOTED: Yes PHYSICAL EXAM: alert, oriented x 3, clear to auscultation bilaterally and regular rate & rhythm AIRWAY EVAL/ANESTHESIA PLAN: normal airway, see other exam findings, ASA II, Local Anesthesia, Risks, benefits & alternatives of sedation and/or procedure discussed and Patient agrees to continue as planned
[2023-11-11 09:10] VITALS: BP 128/74; PULSE 51; RESP 16; O2SAT 95
--- NOTE | 2023-11-11 09:17 | SUR.PHASEI ---
POST CATH NOTE Recieved patient from molder labels. Status post cardiac catheterization via the right femoral appraoch. Site is closed with angioseal and is hemostatic. No s/s of hematoma formation at this time. Vitals and assessments per flowsheet. Family at bedside. Findings discussed by MD with patient/family. Call light in reach. Informed to call for needs.
[2023-11-11 09:25] VITALS: BP 122/77; PULSE 51; RESP 18; O2SAT 95
[2023-11-11 09:40] VITALS: BP 123/62; PULSE 49; RESP 16; O2SAT 96
[2023-11-11 14:18] VITALS: BP 123/62; PULSE 49; RESP 16; O2SAT 96
== END 2023-11-11 14:19 | disposition home or self-care (01) ==
LOC: CSU 09:50
PROVIDERS: Internal Medicine; Admitting Provider Internal Medicine Cardiovascular Disease; PCP Nurse Practitioner Family; Visit Provider Internal Medicine Cardiovascular Disease
DX: I25.118 Atherosclerotic heart disease of native coronary artery with other forms of angina pectoris (principal); I10 Essential (primary) hypertension; E78.5 Hyperlipidemia, unspecified; Z82.49 Family history of ischemic heart disease and other diseases of the circulatory system; Z79.82 Long term (current) use of aspirin; I49.9 Cardiac arrhythmia, unspecified
CPT/HCPCS: 36415; 85347; 93458; 93571; 96374; 96375; 99152; 99153; C1760; C1769; C1887; C1894; G0269; G0378; J1644; J2250; J3010; J3490; J7030; Q0163; Q9967

== ENCOUNTER 2023-11-12 15:32 | Emergency (ER) | payer OTHER, MEDICAID, SELFPAY ==
[2023-11-12 15:49] VITALS: BP 121/73; PULSE 63; RESP 18; TEMP 37.1; O2SAT 95
--- NOTE | 2023-11-12 15:53 | USR_ITS ---
PROCEDURE INFORMATION: Exam: US Duplex Right Lower Extremity Arteries Or Arterial Bypass Grafts Exam date and time: 11/12/2023 4:42 PM Age: 63 years old Clinical indication: Pain; Leg, upper; Right; Prior surgery; Surgery date: Post-operative (0-2 days); Surgery type: Cath procedure; Additional info: Right groin post cath TECHNIQUE: Imaging protocol: Right Real-time duplex scan of the arteries or arterial bypass grafts of the right lower extremity with 2-D klein scale, color Doppler flow and spectral waveform analysis. Images documented and saved. COMPARISON: No relevant prior studies available. FINDINGS: Right common femoral artery: No occlusion or significant stenosis. Normal waveform. No pseudoaneurysm in the inguinal region. Right superficial femoral artery: No occlusion or significant stenosis. Normal waveform. Right popliteal artery: No occlusion or significant stenosis. Normal waveform. Right calf/foot arteries: No occlusion or significant stenosis in the visualized arteries. Normal waveforms. Dorsalis pedis artery is patent. Soft tissues: No hematoma or collection. No evidence of pseudoaneurysm. US/[place] [id number] IMPRESSION: No pseudoaneurysm.
--- NOTE | 2023-11-12 16:40 | W.ED.EXTPRO ---
HPI - Extremity Problem General: Chief complaint: Extremity Problem,Nontraumatic Stated complaint: swelling to right groin Time Seen by Provider: 11/12/23 15:36 Source: patient Mode of arrival: EMS History of Present Illness: 61-year-old male presents emergency room complaining of swelling in his right groin. He had a angiogram yesterday this afternoon he stated sudden onset of pain and swelling in the right groin area of the region of the CT site. He is awake and alert he denies any chest pain he had no intervention yesterday it was a diagnostic catheterization. Associated symptoms: Deny chest pain, fever(s) or rash Review of Systems Const: Denies: fever(s) or chills Card: Denies: chest pain Resp: Denies: dyspnea GI: Denies: abdominal pain : Denies: dysuria, urinary frequency or urinary urgency Musc: Denies: neck pain or back pain Skin/Breast: Denies: rash PFSH ED PFSH: Medical History Elevated liver enzymes Hyperlipidemia Family History Other CAD (coronary artery disease) Chronic kidney disease (CKD) Dementia Hyperlipidemia Hypertension Denies family history of Diabetes Lung disease Cancer Stroke Social History Smoking and tobacco/nicotine status: never used tobacco/nicotine Lives independently: Yes Household members: spouse Housing: House Physical Exam Const: GENERAL APPEARANCE: cooperative and comfortable ORIENTATION/CONSCIOUSNESS: Yes awake, Yes oriented to person, Yes oriented to place and Yes oriented to time HENMT: COMMON NORMALS: normocephalic, atraumatic and hearing grossly normal bilaterally HEAD & SCALP: normocephalic and atraumatic Resp: COMMON NORMALS: normal respiratory effort, No retractions, No use of accessory muscles and clear to auscultation bilaterally AUSCULTATION: clear to auscultation bilaterally Cardio: COMMON NORMALS: regular rate, regular rhythm and No murmurs present (Cardio) RATE: regular rate RHYTHM: regular rhythm GI: COMMON NORMALS: Soft to palpation and No hepatosplenomegaly present AUSCULTATION: Yes normoactive bowel sounds PALPATION: Yes Soft to palpation, No Tenderness to palpation present (GI), No Guarding due to palpation present (GI) and Yes No hepatosplenomegaly present Extremity: COMMON NORMALS: normal to inspection, capillary refill normal, no clubbing, cyanosis or edema, no calf tenderness and no pedal edema OTHER: Examination the right inguinal area there is some mild swelling but no palpable or pulsatile masses. No significant edema or ecchymosis. Neuro: SENSORIUM/ORIENTATION: Yes oriented to person, Yes oriented to place and Yes oriented to time Skin: COMMON NORMALS: no rashes or lesions noted GENERAL SKIN EXAM: no rashes or lesions noted Course Vital Signs: Vital signs: Vital Signs Temperature 98.8 F 11/12/23 15:49 Pulse Rate 64 11/12/23 17:49 Respiratory Rate 18 11/12/23 15:49 Blood Pressure 121/73 11/12/23 17:49 Pulse Oximetry 95 11/12/23 17:49 MDM - Extremity (Nontraumatic) Medical Decision Making Ultrasound does not show any pseudoaneurysm no significant swelling in the groin at this time. Patient describes sudden onset of large amount of swelling but there is none present now does have a little bit of localized swelling consistent with his recent angiogram no pulsatile masses ultrasound was negative. Will discharge patient home can use ice as needed follow-up with cardiology as previously scheduled. Medical Records I reviewed the patient's medical records. Lab Data I reviewed the patient's lab results. Radiology Impressions Arterial/Peripheral Duplex 11/12/23 15:53 IMPRESSION: No pseudoaneurysm. All radiology interpretation(s) finalized by discharge Discharge Plan Discharge Patient Disposition: Home Clinical Impression: Right groin pain Condition: Stable Prescriptions: No Action fluoxetine [Prozac] 10 mg capsule 10 mg PO DAILY Qty: 30 0RF levothyroxine 25 mcg capsule 25 mcg PO DAILY Qty: 90 0RF metoprolol succinate 25 mg tablet extended release 24 hr 12.5 mg PO DAILY Qty: 90 1RF lisinopril 5 mg tablet 5 mg PO BEDTIME Qty: 90 0RF atorvastatin 40 mg tablet See Rx Instructions .ROUTE .COMPLEX Qty: 30 0RF Dose Instruction: TAKE HALF A TABLET BY MOUTH AT BEDTIME. Rx Instructions: TAKE HALF A TABLET BY MOUTH AT BEDTIME. nitroglycerin 2.5 mg capsule, extended release 2.5 mg PO BID Qty: 60 3RF Rx Instructions: allow nitrate-free interval of approx. 10-12 hrs per 24-hour period Discharge Orders: Discharge ED (Routine); Ordered 11/12/23 Ordered By: Woo Jiang Referrals: Dixie Elizabeth FNP [Primary Care Provider] - Discharge Diet: Usual diet Patient Instructions: Opioid Safety, Pain Management Activity Restrictions/Additional Instructions: Thank you for choosing [facility] for your healthcare needs today. Please realize this is an emergency room and that we are providing you with a medical screening exam and this may not be complete and all inclusive of all the testing and or work up that you may need to determine your ailment or severity of your illness. It is very important that you follow up as instructed or that you return to the Emergency Department should you have concerns or if your condition changes or worsens in any way. You were seen today for pain in the right groin after heart catheterization. Ultrasound did not show any signs of pseudoaneurysm or other complication from the heart catheterization access. Follow-up with cardiology as previously scheduled. Coding Level of Care Code ED Electronic Equipment Repairer for Sachin Mckay
[2023-11-12 16:45] VITALS: BP 120/80; PULSE 60; O2SAT 96
[2023-11-12 17:49] VITALS: BP 121/73; PULSE 64; O2SAT 95
== END 2023-11-12 17:50 | disposition home or self-care (01) ==
PROVIDERS: Emergency Provider Family Medicine; PCP Nurse Practitioner Family
DX: R10.31 Right lower quadrant pain (principal); E78.5 Hyperlipidemia, unspecified
CPT/HCPCS: 93926; 99284

== ENCOUNTER → 2023-11-24 16:42 | Outpatient (BNVA) | payer MEDICAID, SELFPAY | PROVIDERS: PCP Nurse Practitioner Family; Visit Provider Nurse Practitioner Family | DX: I25.10 Atherosclerotic heart disease of native coronary artery without angina pectoris (principal) | CPT/HCPCS: 36415; 80048 ==

== ENCOUNTER → 2023-12-13 15:29 | Outpatient (BNVA) | payer MEDICAID, SELFPAY | PROVIDERS: PCP Nurse Practitioner Family; Visit Provider Nurse Practitioner Family | DX: I10 Essential (primary) hypertension (principal); R79.89 Other specified abnormal findings of blood chemistry | CPT/HCPCS: 80061; 84443 ==

== ENCOUNTER → 2024-02-25 09:56 | Outpatient (BNVA) | payer OTHER, MEDICAID, SELFPAY | PROVIDERS: PCP Nurse Practitioner Family; Visit Provider Internal Medicine | DX: E04.1 Nontoxic single thyroid nodule (principal); E03.9 Hypothyroidism, unspecified; R79.89 Other specified abnormal findings of blood chemistry | CPT/HCPCS: 83001; 83002; 84403; 84439; 84443 ==

== ENCOUNTER → 2024-03-07 09:24 | Outpatient (BNVA) | payer OTHER, MEDICAID, SELFPAY | PROVIDERS: PCP Nurse Practitioner Family; Visit Provider Internal Medicine | DX: R79.89 Other specified abnormal findings of blood chemistry (principal); E03.9 Hypothyroidism, unspecified; E04.1 Nontoxic single thyroid nodule | CPT/HCPCS: 84146; 84270; 84402 ==

== ENCOUNTER 2024-11-09 12:49 | Outpatient (CLI) | payer OTHER, SELFPAY ==
--- NOTE | 2024-11-09 13:15 | USCV_ITS ---
Red Macdonald Age: 64 Gender: M : 1960 Exam Date: 11/09/2024 13:05 Ordering Phys: Rodolfo Fields M.D ([email or web address]) Technologist: TRES Exam Location: [facility] [place] Indication: amaurosis fugax Risk Factors: Previous Vascular Surgery: Right Brachial BP: / Left Brachial BP: / Right Left Velocity (cm/s) Spectral Plaque Velocity (cm/s) Spectral Plaque Syst/Diast Broadening Syst/Diast Broadening 64.40/ 23.10 Prox CCA 123.90/ 32.70 76.60/ 24.00 Mid CCA 67.30 / 21.20 75.70/ 25.00 Distal CCA 54.30 / 19.20 47.80/ 13.60 Prox ICA 52.00 / 18.00 53.60/ 21.00 Mid ICA 42.20 / 19.90 40.90/ 17.80 Distal ICA 41.70 / 21.00 82.80 ECA 65.80 0.60 ICA/CCA 1.00 Antegrade Vertebral Antegrade 31.30/ 12.50 cm/s 28.40/ 11.00 cm/s Tri Subclavian Tri 47.80 55.30 FINDINGS Comparison: none available. No significant elevation of systolic or diastolic velocities. Waveforms are normal. Mild scattered carotid plaque. Antegrade vertebral arteries. CONCLUSIONS Bilateral ICA stenosis less than 50%. Mild carotid atherosclerosis. Dr. Susana Vera DO (Electronically Signed) Final Date: 09 November 2024 15:57 S
== END 2024-11-09 12:50 | disposition home or self-care (01) ==
PROVIDERS: PCP Nurse Practitioner Family; Visit Provider Internal Medicine
DX: I65.23 Occlusion and stenosis of bilateral carotid arteries (principal)
CPT/HCPCS: 93880

== ENCOUNTER → 2025-01-04 08:11 | Outpatient (BNVA) | payer OTHER, SELFPAY | PROVIDERS: PCP Nurse Practitioner Family; Visit Provider Nurse Practitioner Family | DX: I10 Essential (primary) hypertension (principal); E78.2 Mixed hyperlipidemia; E03.9 Hypothyroidism, unspecified; R53.83 Other fatigue | CPT/HCPCS: 80053; 80061; 84443; 85025 ==